=== PATIENT | female | born 2000 | race Caucasian/White ===

== ENCOUNTER 2025-03-07 12:56 | Outpatient (CLI) | payer SELFPAY ==
[2025-03-10 13:54] LABS: Hepatitis B Surface Antigen* Negative (Negative)
--- OUTSIDE RECORDS SUMMARY | 2025-03-11 00:45 | XMS_ITS | Clinical Summary ---
Author Organization [facility] Address [address] [place] [id number] Care Team Providers Care [employer] B[employer] Machine Feeder Name Role Phone Clinic, No Pcp Or Primary Care Provider Unavaila ble Allergies Active Allergy Reactions Criticality Noted Date Comments Priyank Anaphylaxis High 03/08/2025 Itchy throat Papaya Anaphylaxis High 03/08/2025 Medications escitalopram oxalate (ESCITALOPRAM ORAL) Take 15 mg by mouth once daily. Active Encounters Date Type Department Care Team Description 03/08/2025 3:05 PM CDT Office Visit [facility] [address] [place] [address] Mariajose Acosta MD Physical (24 year old /[facility] ) 03/08/2025 Travel 03/07/2025 Orders Only [facility] Scanner 1 scan: (1-Ord) NINEVEH, RESULTS, 03/07/2025 03/07/2025 Orders Only [facility] Scanner 1 scan: (1-Ord) N[place]H, MULTIPLE TEST RESULTS, 03/07/2025 from Last 3 Months Immunizations Immunization Administration Dates Next Due DTaP 05/04/2007 [id number] (Pediarix) 01/23/2003 Hepatitis A (Peds) 02/09/2013, 3,06/18/2012,06/18 Hepatitis B (Peds) 08/07/2003,2002 Inactivated Polio Vaccine 05/04/2007 MENINGOCOCCAL VACCINE 2 VIAL [id number] (MENVEO) 02/22/2018 MMR 07/14/2007,05/04/2007,08/07/2003 MMRV 05/04/2007 Meningococcal C Conjugate Vaccine 02/22/2018 Polio Virus, Unspecified 07/14/2007,04/21,2002,09/28 Tdap 03/03/2016, 6,07/14/2007,04/24,10/22/2003,08/07/2003,2002 ,2002 Typhoid (oral) 03/13/2018 Social History Tobacco Use Types Packs/Day Years Used Date Smoking Tobacco: Never Smokeless Tobacco: Never Tobacco Cessation:Counseling Given: Not Answered Alcohol Use Standard Drinks/Week Comments Never 0 (1 standard drink = 0.6 oz pur e alcohol) Social Connections Answer Date Recorded Do you often feel lonely or isolated from those around you? 0 03/08/2025 Financial Resource Strain Answer Date R ecorded Difficulty of Paying Living Expenses 3 03/08/2025 Difficulty of Paying Living Expenses Not on file 03/08/2025 Food Insecurity Answer Date Recorded Do you worry your food will run out before you are able to buy more? 1 03/08/2025 Transportation Needs Answer Date Record ed Does lack of transportation keep you from medica l appointments? 1 03/08/2025 Does lack of transportation keep you from work, meetings or getting things that you need? 1 03/08/2025 Housing Stability Answer Date Recorded What is your housing situation today? 1 03/08/2025 Utilities Answer Date Recorded Do you have trouble paying f or utilities (for example, heat, electricity, water, phone)? 1 03/08/2025 Comments No Sex and Gender Information Value Date Recorded Sex Assigned at Not on file Legal Sex Female 3:53 PM CDT Gender Identity Not on file Sexual Orientation Not on file Obstetrics History Last Filed Vital Signs Vital Sign Reading Time Taken Comments Blood Pressure 103/75 03/08/2025 3:10 PM CDT Pulse 100 03/08/2025 3:10 PM CDT Temperature - - Respiratory Rate - - Oxygen Saturation 98% 03/08/2025 3:10 PM CDT Inhaled Oxygen Concentration - - Weight 53.5 kg (118 lb) 03/08/2025 3:10 PM CDT Height 166 cm (5' 5.35) 03/08/2025 3:10 PM CDT Body Mass Index 19.42 03/08/2025 3:10 PM CDT Plan of Treatment Health Maintenance Due Date Last Done Comments Depression screening for age 12+ 2014 HIV for age 15-65 2017 HPV series for age 9-26 (1 - 3-dose series) 2017 Chlamydia for age 16-24 2018 Hepatitis C screening for age 18-79 2020 Pap test for age 21-65 2023 COVID-19 vaccine series ( season) 2024 05/06/2021 Influenza Vaccine (Season Ended) 2025 Tetanus booster 03/03/2026 03/03/2016, 02/19, 07/14/2007, Additional history exists BMI (ht and wt on same day) for age 18+ 03/08/2026 03/08/2025 Hepatitis B series for 19+ Completed 08/07, 01/23/2003, 2002 Tdap Completed 03/03/2016, 02/19, 07/14/2007, Additional history exists Pneumococcal series for age 6-49 Aged Out No longer eligible based on patient's age to complete this topic Procedures Procedure Name Priority Date/Time Associated Diagnosis Comments SCAN-LABORATORY REPORT 03/07/2025 12:00 AM CDT SCAN-LABORATORY REPORT 03/07/2025 12:00 AM CDT from Last 3 Months Results * SCAN-LABORATORY REPORT (03/07/2025 12:00 AM CDT) Only the most recent of2 resultswithin the time period is included. us Scanner OTHER Final Result from Last 3 Months Care Teams [employer] Machine Feeder Relationship Specialty Start Date End Date Clinic, No Pcp Or . PCP - General 03/06/25
== END 2025-03-07 12:57 | disposition home or self-care (01) ==
LOC: NPINS 03-10 12:59
PROVIDERS: PCP Pediatrics; Visit Provider Family Medicine
DX: Z11.59 Encounter for screening for other viral diseases (principal)
CPT/HCPCS: 87340

== ENCOUNTER 2025-03-07 15:19 | Outpatient (CLI) | payer SELFPAY ==
[2025-03-07 17:43] LABS: Basophils Absolute Auto 0.01 K/uL (0.00-0.30); Basophils Percent Auto 0.1 % (0.0-3.0); Eosinophils Absolute Auto 0.07 K/uL (0.00-0.50); Eosinophils Percent Auto 0.8 % (0.0-7.0); Hematocrit 36.5 % (33.0-51.0); Immature Granulocytes Abs Auto 0.01 K/uL (0.00-0.30); Immature Granulocytes Pct Auto 0.1 %; Lymphocytes Absolute Auto 3.54 K/uL (0.90-2.90); Lymphocytes Percent Auto 40.9 % (20-44); Mean Corpuscular HGB Conc 33 gm/dL (32-36); Mean Corpuscular Hemoglobin 28 pg (26-34); Mean Corpuscular Volume 86 fL (80-100); Monocytes Percent Auto 8.3 % (0.0-11.0); Neutrophils Percent Auto 49.8 % (42.0-72.0); Platelet Count* 201 K/uL (140-440); RDW Coefficient of Variation % 12.3 % (11.5-15.5); Red Blood Count 4.25 m/uL (4.00-5.20); White Blood Count* 8.65 K/uL (4.50-11.00)
[2025-03-07 17:44] LABS: Slide Review Reflex No
[2025-03-07 18:30] LABS: Chloride* 103 mmol/L (96-114)
[2025-03-07 18:31] LABS: Albumin* 4.4 g/dL (3.3-5.0); Potassium* 4.1 mmol/L (3.6-5.1); Sodium* 137 mmol/L (135-149)
[2025-03-07 18:33] LABS: Alanine Aminotransferase* 15 U/L (4-35); Alkaline Phosphatase* 57 U/L (40-150); Anion Gap 9 mEq/L (7-15); Aspartate Amino Transferase* 24 U/L (12-35); Bilirubin Total* 0.3 mg/dL (0.1-1.5); Blood Urea Nitrogen* 14 mg/dL (5-24); Carbon Dioxide* 25 mmol/L (20-32); Creatinine* 0.7 mg/dL (0.5-1.5); Estimated Glomerular Filt Rate 125 ml/min; Total Protein* 6.7 g/dL (6.0-8.3)
[2025-03-07 18:34] LABS: Calcium* 9.6 mg/dL (8.4-10.6); Glucose* 89 mg/dL (60-115)
[2025-03-07 19:15] LABS: HIV 1/2/P24 Combo Screen* Negative (Negative)
[2025-03-07 19:29] LABS: Hepatitis B Surface Antibody* Negative (Negative)
[2025-03-08 04:57] LABS: Hepatitis C Virus Antibody* Negative (Negative)
[2025-03-09 15:01] LABS: Rapid Plasma Reagin (RPR) Non Reactive (Non Reactive)
[2025-03-10 03:54] LABS: QuantiFERON Mitogen minus NIL 9.92 IU/mL; QuantiFERON NIL 0.08 IU/mL; Quantiferon Plus TB1 minus NIL 0.01 IU/mL (<=0.34); Quantiferon Plus TB2 minus NIL 0.01 IU/mL (<=0.34); Quantiferon TB Gold Plus Negative (Negative)
== END 2025-03-07 15:20 | disposition home or self-care (01) ==
LOC: NPINS 15:24
PROVIDERS: PCP Pediatrics; Visit Provider Family Medicine
DX: Z00.00 Encounter for general adult medical examination without abnormal findings (principal); Z11.59 Encounter for screening for other viral diseases; Z11.4 Encounter for screening for human immunodeficiency virus [HIV]; Z11.1 Encounter for screening for respiratory tuberculosis; Z13.9 Encounter for screening, unspecified
CPT/HCPCS: 80053; 82955; 85025; 86480; 86592; 86703; 86706; 86803